=== PATIENT | male | born 1955 | race Caucasian/White ===

== ENCOUNTER 2025-02-19 06:21 | Day surgery (SDC) | payer OTHER, SELFPAY | END 2025-02-19 10:35 | disposition home or self-care (01) | LOC: GI 06:21 | PROVIDERS: ATTENDING PHYSICIAN Internal Medicine Gastroenterology | DX: Z12.11 Encounter for screening for malignant neoplasm of colon (principal); K64.8 Other hemorrhoids; K57.30 Diverticulosis of large intestine without perforation or abscess without bleeding; K63.89 Other specified diseases of intestine; D12.5 Benign neoplasm of sigmoid colon; D12.0 Benign neoplasm of cecum; K52.9 Noninfective gastroenteritis and colitis, unspecified | CPT/HCPCS: 45380; 88305 ==